=== PATIENT | female | born 1995 | race Two or more races ===

== ENCOUNTER 2021-01-25 01:04 | Emergency (ER) | payer MEDICAID, OTHER ==
[~2021-01-25] VITALS: Ht 152.4 cm; Wt 72.6 kg
[2021-01-25 01:10] VITALS: BP 139/82
[2021-01-25] MEDS ORDERED: KETOROLAC TROMETH 60MG/2ML VIAL IM ONE (02:30)
[2021-01-25] MEDS ORDERED: ALPRAZolam 0.25 MG TAB PO ONE (02:30)
== END 2021-01-25 04:19 | disposition home or self-care (01) ==
LOC: ER 01:04
DX: S13.4XXA Sprain of ligaments of cervical spine, initial encounter (principal); S30.0XXA Contusion of lower back and pelvis, initial encounter; M54.6 Pain in thoracic spine; M54.5 Low back pain; E66.9 Obesity, unspecified; Z68.31 Body mass index [BMI] 31.0-31.9, adult; V43.62XA Car passenger injured in collision with other type car in traffic accident, initial encounter; Y93.89 Activity, other specified; Y92.89 Other specified places as the place of occurrence of the external cause; Y99.8 Other external cause status
CPT/HCPCS: 70450; 72040; 72070; 72100; 96372; 99284; J1885

== ENCOUNTER 2021-07-10 18:14 | Emergency (ER) | payer MEDICAID ==
[~2021-07-10] VITALS: Ht 152.4 cm; Wt 86.2 kg
[2021-07-10 20:24] VITALS: BP 141/78
[2021-07-10 20:39] LABS: Urine Bacteria FEW /hpf (None Seen); Urine Blood Negative /uL (Negative); Urine Mucus FEW (None Seen); Urine Specific Gravity 1.022 (1.001-1.035); Urine WBC 2 /hpf (0 - 5)
[2021-07-10] MEDS ORDERED: KETOROLAC TROMETH 60MG/2ML VIAL IM ONE (21:45)
== END 2021-07-10 22:40 | disposition home or self-care (01) ==
LOC: ER 18:14
DX: G89.29 Other chronic pain (principal); R51.9 Headache, unspecified; M54.50 Low back pain, unspecified; M54.6 Pain in thoracic spine; M25.512 Pain in left shoulder; Z91.018 Allergy to other foods
CPT/HCPCS: 72100; 81001; 96372; 99284; J1885

== ENCOUNTER 2021-10-14 15:56 | Emergency (ER) | payer MEDICAID ==
[~2021-10-14] VITALS: Ht 154.9 cm; Wt 75.7 kg
[2021-10-14 17:56] VITALS: BP 121/76
== END 2021-10-14 18:06 | disposition home or self-care (01) ==
LOC: ER 15:56
DX: S83.92XA Sprain of unspecified site of left knee, initial encounter (principal); S83.91XA Sprain of unspecified site of right knee, initial encounter; Z91.018 Allergy to other foods; X58.XXXA Exposure to other specified factors, initial encounter; Y93.89 Activity, other specified; Y92.89 Other specified places as the place of occurrence of the external cause; Y99.8 Other external cause status
CPT/HCPCS: 29505; 73562

== ENCOUNTER 2022-05-16 13:38 | Emergency (ER) | payer MEDICAID ==
[~2022-05-16] VITALS: Ht 152.4 cm; Wt 97.5 kg
[2022-05-16] MEDS ORDERED: ACET-1080 PO (16:02)
[2022-05-16 16:29] VITALS: BP 111/73
== END 2022-05-16 16:32 | disposition home or self-care (01) ==
LOC: ER 13:41
DX: O26.892 Other specified pregnancy related conditions, second trimester (principal); R10.2 Pelvic and perineal pain; Z79.899 Other long term (current) drug therapy; Z91.018 Allergy to other foods; Z3A.14 14 weeks gestation of pregnancy
CPT/HCPCS: 76805

== ENCOUNTER 2023-12-23 03:03 | Emergency (ER) | payer MEDICAID, OTHER ==
[~2023-12-23] VITALS: Ht 152.4 cm; Wt 101.7 kg
[~2023-12-23 03:03] MED LIST: ACET-1080 PO
[2023-12-23] MEDS ORDERED: BACL10TA PO (06:40)
[2023-12-23] MEDS ORDERED: IBUP-1456 PO (06:40)
[2023-12-23] MEDS: ACETAMINOPHEN 325 MG TAB PO ONE (06:49)
[2023-12-23 06:57] VITALS: BP 103/61; PULSE 73; RESP 16; TEMP 97.9; O2SAT 97
== END 2023-12-23 07:18 | disposition home or self-care (01) ==
LOC: ER 03:03
DX: S16.1XXA Strain of muscle, fascia and tendon at neck level, initial encounter (principal); S39.012A Strain of muscle, fascia and tendon of lower back, initial encounter; R51.9 Headache, unspecified; Z91.018 Allergy to other foods; Z79.899 Other long term (current) drug therapy; V49.49XA Driver injured in collision with other motor vehicles in traffic accident, initial encounter; Y93.I9 Activity, other involving external motion; Y92.411 Interstate highway as the place of occurrence of the external cause; Y99.8 Other external cause status
CPT/HCPCS: 70450; 72100; 72125; 81025